=== PATIENT | male | born 1975 | race Caucasian/White ===

== ENCOUNTER 2017-11-30 13:33 | Inpatient (IN) | payer OTHER ==
--- NOTE | 2017-11-30 13:53 | EDPHY ---
PA Addendum - Addendum .: Patient is here for preop for orthopedic surgery by Dr. Tomas Coleman. Patient was offered medical screening exam by myself and declined. He is clearly alert oriented and has capacity to make decisions regarding his care.
[2017-11-30] MEDS ORDERED: fentaNYL 100 MCG/2 ML INJ ONE ×3 (13:58→18:11)
[2017-11-30] MEDS ORDERED: PROPOFOL 200 MG/20 ML VIAL ONE ×2 (13:58→17:30)
[2017-11-30] MEDS ORDERED: LIDOCAINE 2% 100 MG/5 ML SYR ONE (13:59)
[2017-11-30] MEDS ORDERED: ceFAZolin 2 GM/DEXTROSE 100 ML IV ONE (14:04)
[2017-11-30] MEDS ORDERED: ceFAZolin 2 GM/SWFI 20 ML SYR IVP ONE (14:08)
--- NOTE | 2017-11-30 14:24 | PDANEPAE ---
ANE History of Present Illness traumatic ankle fx here ORIF ANE Past Medical History - Cardiovascular History Hx Hypertension: No Hx Arrhythmias: No Hx Chest Pain: No - Pulmonary History Hx COPD: No Hx Asthma/Reactive Airway Disease: No Hx Oxygen in Use at Home: No Hx Sleep Apnea: Yes - Endocrine History Hx Diabetes: No - Liver History Hepatic History Comment: Fatty liver ANE Review of Systems Review of Systems: - Exercise capacity Exercise capacity: >=4 METS ANE Patient History - Allergies Allergies/Adverse Reactions: No Known Allergies Allergy (Unverified 11/30/17 13:38) - Home Medications Home Medications: NK [No Known Home Meds] 11/30/17 [Last Taken Unknown] - NPO status NPO Since - Liquids (Date): 11/30/17 NPO Since - Liquids (Time): 07:30 NPO Since - Solids (Date): 11/30/17 NPO Since - Solids (Time): 07:30 - Anes Hx Anes Hx: no prior problems - Smoking Hx Smoking Status: Never smoked - Alcohol Use Alcohol Use: Rarely - Family Anes Hx Family Anes Hx: none ANE Labs/Vital Signs - Vital Signs Blood Pressure: 122/84 Heart Rate: 122 Respiratory Rate: 16 O2 Sat (%): 96 Height: 193.04 cm Weight: 117.934 kg ANE Physical Exam - Airway Neck exam: FROM Mallampati Score: Class 2 Mouth exam: normal dental/mouth exam, wilson Mouth image: 1 - chipped - Pulmonary Pulmonary: no respiratory distress, clear to auscultation - Cardiovascular Cardiovascular: regular rate and rhythym, no murmur, rub, or gallop - ASA Status ASA Status: II ANE Anesthesia Plan Anesthesia Plan: GA w LMA
[2017-11-30] MEDS ORDERED: MIDAZOLAM 2 MG/2 ML VIAL IVP ONE (14:26)
[2017-11-30] MEDS ORDERED: ceFAZolin 2 GM/SWFI 2 GM/20 ML SYR IVP ONE (14:31)
[2017-11-30] MEDS ORDERED: ROCURONIUM 50 MG/5 ML VIAL ONE (14:32)
[2017-11-30] MEDS: fentaNYL 100 MCG/2 ML INJ IVP PRN ×4 (14:32→19:21)
[2017-11-30] MEDS ORDERED: MIDAZOLAM 2 MG/2 ML VIAL ONE (14:34)
[2017-11-30] MEDS ORDERED: HYDROmorphONE/DILAUDID 2 MG/ML INJ ONE ×2 (15:19→18:11)
[2017-11-30] MEDS ORDERED: ACETAMINOPHEN 500 MG TAB PO PRN (17:48)
[2017-11-30] MEDS ORDERED: OXYCODONE/APAP 5/325 TAB PO PRN (17:48)
[2017-11-30] MEDS ORDERED: HYDROCODONE/APAP 5/325 TAB PO PRN (17:48)
[2017-11-30] MEDS ORDERED: NALOXONE HCL 0.4 MG/ML INJ IVP PRN (17:48)
[2017-11-30] MEDS ORDERED: PROMETHAZINE HCL 25 MG/ML INJ IVP PRN (17:48)
[2017-11-30] MEDS ORDERED: ONDANSETRON 4 MG/2 ML VIAL IVP PRN ×2 (17:48→17:58)
--- NOTE | 2017-11-30 17:48 | POSTANESTH ---
Post Anesthetic Evaluation Cardiovascular Status: Normal, Stable, Similar to Pre-Op Cond Respiratory Status: Normal, Stable, Similar to Pre-op Cond. Level of Consciousness/Mental Status: Can Participate in Eval Pain Control: Adequate, Prn Tx Ordered Nausea/Vomiting Control: Adequate, Prn Tx Ordered Complications Possibly Related to Anesthesia: None Noted
[2017-11-30] MEDS ORDERED: ONDANSETRON DISINTEGRATING 4 MG TAB PO PRN (17:58)
[2017-11-30] MEDS ORDERED: TEMAZEPAM 15 MG CAP PO PRN (17:58)
[2017-11-30] MEDS ORDERED: NS 1,000 ML IV SCH (18:00)
[2017-11-30] MEDS: HYDROmorphONE/DILAUDID 1 MG/ML INJ IVP PRN ×3 (18:17→19:06)
--- NOTE | 2017-11-30 18:28 | GOP ---
[f rep st] OPERATIVE REPORT DATE OF OPERATION: 11/30/2017 SURGEON: Tomas Coleman MD ANESTHESIA: General. PREOPERATIVE DIAGNOSIS: 1. Comminuted left tibial plafond fracture. 2. Left distal fibular fracture. POSTOPERATIVE DIAGNOSIS: PROCEDURE PERFORMED: FINDINGS: DESCRIPTION OF PROCEDURE: Patient taken to the operating room, administered general anesthesia, plac ed in supine position. The left lower extremity was prepped and draped in normal sterile fashion. E smarch exsanguination was performed followed by elevation of thigh cuff to 275 mmHg pressure. Incisi on was made in the midline, extended distally toward the 4th toe. It was carried through dermal subc utaneous tissues. The extensor retinaculum was released. The peroneal nerve was protected. The matt rovascular bundle was protected. The anterior tibialis was reflected. The lateral aspect of the tib ia was exposed. There was extensive comminution extending intra-articularly. Two small fragments we re removed. The more proximal fracture segments were secured temporarily with K-wires after reducing them with distraction and slight rotational motion. The more distal fracture segment extending in a rticular were then pieced together. The fracture of the articular surface was reapproximated and 3 K -wires were brought through the distal articular surface. The DCP anterolateral L-shaped plate was t hen placed on the tibia. It was secured distally with a single lag screw to get good reduction. It was then secured proximally after distracting the fracture slightly further. It was secured proximal ly with 3.5 cortical screws. The distal locking screws were then placed x3 in the L-shaped portion o f the plate. An inter frag screw was placed through the plate, one in the posterior fragments, it wa s a 3.5 cortical screw. A 4.0 cancellous cannulated lag screw was then placed in the medial malleola r segment reattaching this segment back to the main shaft segment. A more transverse medial malleola r screw was then placed to further lag the distal fracture segments together. The proximal screw hol es were then filled further with 3.5 cortical screws. We left a couple of screw holes open in the pl ate. Thorough lavage performed with normal saline. The extensor retinaculum was then reapproximated with a 2-0 Vicryl suture followed by closure of subcutaneous tissues with a 2-0 Vicryl suture follow ed by closure of the dermis with ramírez. The fibula was then exposed through a lateral incision, ca rried through dermal subcutaneous tissues. Sharp and blunt dissection was performed down to the late ral fibula and the fracture was exposed. The periosteum was reflected. The fracture was reduced. B ecause of its transverse nature, we elected just to place a 4-hole plate, leaving the central hole op en. We could not inter frag through the fracture. The fracture was secured with this 4-hole, 1/3 tu bular plate, was slightly contoured with the plate benders. Two 4.0 cancellous screws were placed di stally and two 3.5 cortical screws proximally. It was felt that the anterior tib-fib ligament was in tact. Thorough lavage performed with normal saline. Closure was performed with a 3-0 Vicryl in subc utaneous tissues followed by ramírez in the dermis. Sterile compression dressing applied followed by a padded splint. The patient tolerated procedure well, was transferred back to recovery in stable condition. There we re no operative complications. PROCEDURE PERFORMED: 1. Open reduction internal fixation, comminuted left tibial plafond fracture. 2. Open reduction, internal fixation, left distal fibula fracture. COMPLICATIONS: None. /[id number]/MODL
[2017-11-30] MEDS: oxyCODONE IR 5 MG TAB PO PRN (20:25)
[2017-11-30] MEDS ORDERED: ceFAZolin 2 GM/DEXTROSE 100 ML IV SCH (22:00)
[2017-11-30] MEDS: ceFAZolin 2 GM/SWFI 2 GM/20 ML SYR IVP SCH (22:19)
[2017-12-01] MEDS: oxyCODONE IR 5 MG TAB PO PRN ×6 (00:19→21:24)
--- NOTE | 2017-12-01 04:39 | GOP ---
[f rep st] OPERATIVE REPORT DATE OF OPERATION: 12/01/2017 SURGEON: Tomas Coleman MD PREOPERATIVE DIAGNOSIS: POSTOPERATIVE DIAGNOSIS: PROCEDURE PERFORMED: FINDINGS: INDICATIONS: The patient was seen in his patient room. We had talked with the nurse previously and she was concerned about the pain that he was experiencing. He had the dressings taken down. This to ok his pain from a level 9 down to a level 5. DESCRIPTION OF PROCEDURE: The patient was positioned supine. His leg was elevated to the level of h is heart. The skin was infiltrated in the anterior and lateral compartment with 0.25 cc of 1% lidoca ine. [employer] manometer needle was then passed into the anterior compartment. Pressure measured appr oximately 30. The needle was then placed into the lateral compartment and pressure measured approxim ately 17. The needle was placed into the posterior compartments and the measurement was 11. His gregorio stolic blood pressure was 85. The procedure was terminated and he was placed back into his splint. TIME SEEN: 1:50 a.m. REASON FOR PROCEDURE: Rule out compartment syndrome. EXAM: Patient had no increased discomfort with passive dorsal plantar flexion of the toes. His ante rior compartment felt mildly tense. His lateral and posterior compartments did not feel tense. He h ad good dorsalis pedis pulse. He is able to actively flex and extend the toes without difficulty. PLAN: Because of his improved clinical status with much less pain and his ability to actively move t he toes with a fairly normal sensation, both dorsally and volarly in the foot, we elected not to proc eed with compartment release at this time. The patient will continue with icing and elevation. We w ill re-examine him on rounds in the morning. /[id number]/MODL
[2017-12-01] MEDS: ceFAZolin 2 GM/SWFI 2 GM/20 ML SYR IVP SCH (06:17)
--- NOTE | 2017-12-01 08:29 | SOAPPROG ---
SOAP Progress Note Assessment/Plan: Assessment: Post-op ORIF fracture of tibial plafond and fibula No evidence at this time for compartment syndrome. Pressures measured with [employer] manometer last PM at 1:00 Patients pain remains 5 out of 10 since dressings and splint were taken down and loosened. Plan:Continue to monitor pain and neurovascular status. Strict bedrest. PT and OT not to get up today. continue icing q 30 on off and elevate leg just above the heart level. Will use Aspirin 325/d for DVT prophylaxis 12/01/17 08:24 Subjective: Pain is still better after loosening splint. Objective: Vital Signs Temp Pulse Resp BP Pulse Ox 37.2 C 88 16 117/75 97 12/01/17 07:40 12/01/17 07:40 12/01/17 07:40 12/01/17 07:40 12/01/17 07:40 11/30/17 12/01/17 12/02/17 05:59 05:59 05:59 Intake Total 3270 Output Total 2230 Balance 1040 Sensory is intact all dermatomes Moves toes actively very well No increased pain with passive Dorsi-plantar flexion of toes Moderate output in drain so we will keep it in until tomorrow ICD10 Worksheet Patient Problems: Problems Problem Status Onset Fractured tibia and fibula Acute
[2017-12-01] MEDS: ASPIRIN 325 MG TAB PO SCH (09:04)
--- NOTE | 2017-12-01 09:16 | PDMN ---
Medical Necessity Medical necessity: C/M review: Patient meets INPT criteria under [facility] S-100 Ankle Fracture, Closed, Open Reduction, Internal Fixation (ORIF): Acute comminuted left tibial plafond fracture and left distal fibular fracture requiring 11/30/2017 surgery - ORIF of comminuted left tibial plafond fracture and ORIF of distal left fibular fracture, 01:00 AM patient reported ongoing severe postop pain level 9 out of 10, R.O compartment syndrome: surgical dressings were taken down and in patient room, pain decreased down to 5 out of 10, left leg elevated to level of heart, [employer] manometer needle placed into anterior compartment- pressured measured Approximately 30, needle then placed into the lateral compartment - pressure measured approximately 17, needle then placed in posterior compartment- pressure measured 11diastolic BP 85 , procedure terminated and patient placed back into splint, due improved patient clinical status with less pain and ability to actively move left foot toes, decision made not to proceed with compartment release, concern for possible development of compartment syndrome, severe postop pain requiring ongoing strict bedrest, elevate left leg, icing, frequent doses IV Morphine, IV NS 75 ml/hr. infusion, acute inpt PT/OT not to get patient up 12/01/2017, frequent left lower extremity neurovascular checks. MD anticipates > 2 MN LOS for ongoing med nec for eval and TX of above.
[2017-12-01] MEDS ORDERED: POLYETHYLENE GLYCOL 3350 17 GM PKT PO PRN (16:17)
[2017-12-01] MEDS ORDERED: MAGNESIUM HYDROXIDE 30 ML UDCUP PO PRN (16:17)
[2017-12-01] MEDS ORDERED: BISACODYL 10 MG SUPP PR PRN (16:17)
--- NOTE | 2017-12-01 18:41 | ASMTCMCOM ---
CM Note CM Note Notes: Pt admitted with L ankle fx s/p ORIF. PT/OT ordered; evals pending. CM will follow. Date Signed: 12/01/2017 06:40 PM Electronically Signed By:Cornelia Santoro RN
[2017-12-01] MEDS: LACTULOSE 20 GM/30 ML UDCUP PO PRN (20:14)
[2017-12-01] MEDS: SENNOSIDES/DOCUSATE SODIUM TAB PO SCH (20:14)
[2017-12-01] MEDS: ACETAMINOPHEN 325 MG TAB PO PRN (23:43)
[2017-12-02] MEDS: oxyCODONE IR 5 MG TAB PO PRN ×2 (02:05→07:29)
[2017-12-02] MEDS: ACETAMINOPHEN 325 MG TAB PO PRN ×2 (07:30→18:31)
--- NOTE | 2017-12-02 07:48 | SOAPPROG ---
SOAP Progress Note Assessment/Plan: Assessment: Post-op ORIF fracture of tibial plafond and fibula No evidence at this time for compartment syndrome. Pressures measured with [place] manometer last PM at 1:00 Patients pain remains 5 out of 10 since dressings and splint were taken down and loosened. Plan:Continue to monitor pain and neurovascular status. bedrest, but OPO/OT can assist to bathroom. PT and OT not to get up today. continue icing q 30 on off and elevate leg just above the heart level. Will use Aspirin 325/d for DVT prophylaxis. Pull drain today at 14:00 12/01/17 08:24 12/02/17 07:44 12/02/17 07:48 Subjective: Pain still 5/10. Objective: Vital Signs Temp Pulse Resp BP Pulse Ox 36.8 C 89 18 126/88 H 94 12/02/17 07:43 12/02/17 07:43 12/02/17 07:43 12/02/17 07:43 12/02/17 07:43 12/01/17 12/02/17 12/03/17 05:59 05:59 05:59 Intake Total 1900 Output Total 1155 Balance 745 moderate swelling persists. Moves toes well No pain with passive dorsiplantar flexion sensory intact to light touch all derms bur subjective sense slight decrease on ball of foot Drain about 15 cc last shift. ICD10 Worksheet Patient Problems: Problems Problem Status Onset Fractured tibia and fibula Acute - ICD10 Problem Qualifiers (1) Fractured tibia and fibula
[2017-12-02] MEDS: SENNOSIDES/DOCUSATE SODIUM TAB PO SCH ×2 (09:39→20:58)
[2017-12-02] MEDS: ASPIRIN 325 MG TAB PO SCH (09:40)
--- NOTE | 2017-12-02 12:56 | SOAPPROG ---
SOAP Progress Note Assessment/Plan: Assessment: s/p LEFT leg ORIF of tibial plafond and fibula: overall doing well. No evidence of compartment syndrome at this time. Patient pain remains 5/10 since his dressings and splint were changed today by Dr. Coleman. -Drain: I have pulled at this visit. Minimal drainage. No signs of infection around drain site upon take down. Plan: -Continue to monitor for lower compartment pain and NV status. -NWB, PT/OT for ambulation assistance. -Continue ice/elevation of leg for decreased swelling. -Patient to stay overnight for continued monitoring now that drain has been pulled. -DVT prophylaxis: SCDs on non-op leg, RAN hose, ASA 325 daily. Patient discussed/agreed upon with Dr. Coleman. 12/02/17 12:51 Subjective: s/p left leg ORIF: tibial plafond and fibula. Doing well, able to respond appropriately to questions. Denies abnormal numbness , tingling, change in heat/color of extremity, change in distal ROM of his toes , cough, congestion, chest pain, dyspnea, claudication, worsening swelling or pain. Objective: Vital Signs Temp Pulse Resp BP Pulse Ox 36.8 C 91 16 127/89 H 97 12/02/17 11:23 12/02/17 11:23 12/02/17 11:23 12/02/17 11:23 12/02/17 11:23 12/01/17 12/02/17 12/03/17 05:59 05:59 05:59 Intake Total 1900 Output Total 1155 Balance 745 A&O. NAD, able to respond appropriately to questions. Non-labored breathing, no diaphoresis. M/S: Left lower leg bandaged, upon take down of dressing compartments are all soft. No change in heat/color of extremity noted. Drain was removed and there was no evidence of infection around wound site, no abnormal bleeding/oozing/ discharge. Passive dorsiflexion/plantarflexion of left foot great toe produced no reproducible pain in lower compartments. Calves soft and supple and NTTP b/l with brisk cap refill noted b/l and gross sensation intact: no focal deficits noted. After removal of drain, patient was resplinted. - Pending Discharge Pending Discharge Within 48 Hours: Yes Pending Discharge Date: 12/04/17 Pending Discharge Time: 11:00 ICD10 Worksheet Patient Problems: Problems Problem Status Onset Fractured tibia and fibula Acute
[2017-12-02] MEDS: LACTULOSE 20 GM/30 ML UDCUP PO PRN (20:58)
[2017-12-02 23:33] VITALS: RESP 16
[2017-12-03] MEDS: oxyCODONE IR 5 MG TAB PO PRN ×2 (07:20→13:12)
[2017-12-03 07:54] VITALS: BP 133/87; PULSE 88; TEMP 98.8; O2SAT 97
--- NOTE | 2017-12-03 07:54 | SOAPPROG ---
SOAP Progress Note Assessment/Plan: Assessment: s/p Left leg ORIF of tibial plafond and fibula: overall doing well. No evidence of compartment syndrome at this time. Plan: -NWB, PT/OT for ambulation assistance. -Continue ice/elevation of leg for decreased swelling. -Patient to stay overnight for continued monitoring now that drain has been pulled. -DVT prophylaxis: RAN dillard, ASA 325 daily. -Ortho stable and okay for discharge. Subjective: Patient is status post left leg ORIF tibial plafond and fibula. He states he is doing well and his pain is controlled with oral pain medicine. Denies abnormal numbness, tingling, change in heat/color of extremity, change in distal ROM of his toes, cough, congestion, chest pain, dyspnea, claudication , worsening swelling or pain. Objective: Vital Signs Temp Pulse Resp BP Pulse Ox 36.9 C 86 16 130/77 H 95 12/02/17 23:32 12/02/17 23:32 12/02/17 23:32 12/02/17 23:32 12/02/17 23:32 12/02/17 12/03/17 12/04/17 05:59 05:59 05:59 Intake Total 1900 2550 Output Total 1155 3375 Balance 745 -825 Physical exam of the left lower extremity: splint is in place and fitting well. Calf is soft and non tender. Normal sensation to light touch in the LLE. Patient is able to move all 5 toes. Distal pulse present in the LLE. ICD10 Worksheet Patient Problems: Problems Problem Status Onset Fractured tibia and fibula Acute
[2017-12-03] MEDS: LACTULOSE 20 GM/30 ML UDCUP PO PRN (09:50)
[2017-12-03] MEDS: ASPIRIN 325 MG TAB PO SCH (09:51)
[2017-12-03] MEDS: SENNOSIDES/DOCUSATE SODIUM TAB PO SCH (09:51)
--- NOTE | 2017-12-03 15:15 | ASDISCHSUM ---
Discharge Information Plan Status:Home with No Needs Medically Cleared to Leave: Discharge Date:12/03/2017 03:10 PM CM D/C Disposition: ADT D/C Disposition:Home, Routine, Self-Care Projected Discharge Date:12/03/2017 03:10 PM Transportation at D/C: Discharge Delay Reason: Follow-Up Date:12/03/2017 03:10 PM Discharge Slot: Final Diagnosis: Placement Information Patient Contact Information Contact Name:JAD Relationship: Address:[address] Work Phone: City:[place] Alternate Phone: State/Zip Code:[place] [address] Email: Financial Information Financial Class:HMO and PPO Plans Primary Plan Desc:[employer] Primary Plan Number:[id number] Secondary Plan Desc: Secondary Plan Number: Assessment Information [facility] CM Progress Note CM Note CM Note Notes: Pt admitted with L ankle fx s/p ORIF. PT/OT ordered; evals pending. CM will follow. Date Signed: 12/01/2017 06:40 PM Electronically Signed By:Cornelia Santoro RN [facility] CM Progress Note CM Note CM Note Notes: Pt medically stable for d/c with family support. PT/OT rec home. No CM d/c needs identified. Date Signed: 12/03/2017 03:14 PM Electronically Signed By:HETAL Duval Intervention Information
--- NOTE | 2017-12-04 09:58 | PDDCSUM ---
Discharge Summary Discharge Summary: 42y/o M c/o L ankle pain s/p fall while snowboarding 11/30/2017. Pt presented to [facility] urgent care, x-rays were taken, and surgery was planned for that afternoon at [facility]. Pt was prepped for surgery and received one dose of Ancef prior to surgery, and 24-hours following surgery for post-operative prophylaxis. Pt tolerated surgery well. Pt required compression pressures to be taken, within normal limites. Pain was well-controlled. SCDs/TEDs for mechanical prophylaxis and Aspirin 325mg once daily for VTE chemoprophylaxis. NWB, elevation and ice. Pt tolerated PT and OT. Pt will follow-up in clinic 10 -14 days post-operatively. Hospital course otherwise uneventful.
== END 2017-12-03 15:10 | disposition home or self-care (01) | DRG 494 ==
LOC: FSGY 14:11 → EDSTATUS 14:30 → F3N 16:33 → OBSVTOIN 12-01 08:47
PROVIDERS: ADMIT Orthopaedic Surgery Sports Medicine; ATTEND Orthopaedic Surgery Sports Medicine
PROC: 0QSH04Z Reposition Left Tibia with Internal Fixation Device, Open Approach (ICD-10-PCS; principal; 2017-12-01)
PROC: 0QSK04Z Reposition Left Fibula with Internal Fixation Device, Open Approach (ICD-10-PCS; principal; 2017-12-01)
DX: S82.392A Other fracture of lower end of left tibia, initial encounter for closed fracture (principal); S82.832A Other fracture of upper and lower end of left fibula, initial encounter for closed fracture; Y93.23 Activity, snow (alpine) (downhill) skiing, snowboarding, sledding, tobogganing and snow tubing; Y92.838 Other recreation area as the place of occurrence of the external cause; V00.311A Fall from snowboard, initial encounter
CPT/HCPCS: 97116-GP; 97161-GP; 97165-GO; 97530-GO; 97530-GP; 97535-GO; C1713; C1769; G0378; J0690; J1170; J2001; J2250; J2270; J2704; J3010